=== PATIENT | male | born 1980 | race Caucasian/White ===

== ENCOUNTER 2024-12-05 12:24 | Emergency (ER) | payer MEDICAID ==
[~2024-12-05] VITALS: Ht 185.4 cm; Wt 104.3 kg
[2024-12-05 12:42] VITALS: O2SAT 99
[2024-12-05 15:05] LABS: BASOPHILS % 0.6 % (0.0-2.0); EOSINOPHILS % 3.9 % (0.0-5.0); HEMATOCRIT. 44.2 % (42.0-52.0); HEMOGLOBIN. 14.5 g/dL (14.0-18.0); MEAN CORPUSCULAR HEMOGLOBIN 29.9 pg (28.0-32.0); MEAN CORPUSCULAR HGB CONC 32.8 g/dL (31.0-37.0); MEAN CORPUSCULAR VOLUME 91.1 fL (80.0-94.0); MEAN PLATELET VOLUME 8.9 fl (7.4-10.4); MONOCYTES % 6.2 % (2.0-8.0); NEUTROPHILS % 66.3 % (40.0-76.0); PLATELET 250 x1000/uL (130-400); RED BLOOD CELL COUNT 4.85 mill/uL (4.7-6.1); RED CELL DISTRIBUTION WIDTH 13.8 % (11.6-14.6); WHITE BLOOD COUNT 8.1 x1000/uL (4.5-11.0)
[2024-12-05 15:33] LABS: CHLORIDE 104 mEq/L (98-107); POTASSIUM 3.9 mEq/L (3.5-5.1); SODIUM 141 mEq/L (136-145)
[2024-12-05 15:34] LABS: CALCIUM 10.2 mg/dL (8.7-10.4); CARBON DIOXIDE 27 mEq/L (21-32)
[2024-12-05 15:39] LABS: CREATININE 0.9 mg/dL (0.6-1.3); GLUCOSE 104 mg/dL (70-105); UREA NITROGEN BLOOD 11 mg/dL (9-23)
[2024-12-05 15:41] LABS: ALANINE AMINOTRANSFERASE 150 IU/L (10-49); ALBUMIN 4.5 g/dL (3.2-4.8); ASPARTATE AMINOTRANSFERASE 65 IU/L (<34); BILIRUBIN DIRECT 0.2 mg/dL (<=3.0); BILIRUBIN TOTAL 0.5 mg/dL (0.1-1.0); PROTEIN TOTAL 8.2 g/dL (6.0-8.3)
[2024-12-05 15:47] VITALS: BP 121/84; PULSE 99; RESP 14; TEMP 37.1; O2SAT 100
[2024-12-05 15:50] LABS: TROPONIN I HIGH SENSITIVITY < 4 ng/L (3.0-53)
[2024-12-05] MEDS ORDERED: PERM60CR4 TP (16:33)
[2024-12-05] MEDS ORDERED: HYDR45CR12 TP (16:33)
[2024-12-05] MEDS ORDERED: DIPH28.33 TP (16:33)
[2024-12-05] MEDS ORDERED: FAMO-135 MT (16:33)
== END 2024-12-05 16:37 | disposition home or self-care (01) ==
LOC: ER 12:24
DX: R10.13 Epigastric pain (principal); R11.2 Nausea with vomiting, unspecified; Z79.899 Other long term (current) drug therapy; Z86.59 Personal history of other mental and behavioral disorders
CPT/HCPCS: 36415; 80048; 80076; 84484; 85025; 93005; 99283; 99284